=== PATIENT | male | born 1995 | race Hispanic/Latino ===

== ENCOUNTER 2018-03-15 16:56 | Emergency (ER) | payer SELFPAY ==
[2018-03-15] MEDS ORDERED: ONDANSETRON ODT 4 MG TAB ONE (17:33)
[2018-03-15] MEDS ORDERED: ACETAMINOPHEN 325 MG TAB ONE (17:33)
== END 2018-03-15 18:40 | disposition home or self-care (01) ==
LOC: EDH 16:56
DX: B34.9 Viral infection, unspecified (principal); Z72.0 Tobacco use
CPT/HCPCS: 87804

== ENCOUNTER 2018-08-28 16:13 | Emergency (ER) | payer OTHER ==
[2018-08-28] MEDS ORDERED: ONDANSETRON HCL 4 MG/2 ML VIAL ONE (17:30)
[2018-08-28] MEDS ORDERED: SODIUM CHLORIDE 0.9% 1000ML 1,000 ML IV ONE (17:30)
[2018-08-28 17:42] LABS: BASOPHILS % (AUTO) 0.2 % (0.0-5.0); EOSINOPHILS % (AUTO) 0.1 % (0.0-8.0); HEMATOCRIT 44.1 % (42-54); LYMPHOCYTES % (AUTO) 12.4 % (21.0-51.0); MEAN CORPUSCULAR HEMOGLOBIN 31.4 pg (27.0-33.0); MEAN CORPUSCULAR HGB CONC 34.9 g/dL (32.0-36.0); MEAN CORPUSCULAR VOLUME 89.8 fL (79-99); NEUTROPHILS % (AUTO) 74.3 % (40.0-77.0); PLATELET COUNT (AUTO) 227 K/uL (130-400); RED BLOOD CELL COUNT(AUTO) 4.91 MIL/uL (4.50-6.20); RED CELL DISTRIBUTION WIDTH 12.4 % (11.0-15.5)
[2018-08-28 18:02] LABS: POTASSIUM 3.6 mmol/L (3.5-5.1)
[2018-08-28 19:18] LABS: APPEARANCE,URINE Clear (CLEAR); BILIRUBIN,URINE Negative (NEGATIVE); COLOR,URINE Yellow (YELLOW); GLUCOSE, URINE (UA) Negative (NEGATIVE); KETONES,URINE Negative (NEGATIVE); LEUKOCYTE ESTERASE ,URINE Negative (NEGATIVE); NITRATE,URINE Negative (NEGATIVE); OCCULT BLOOD,URINE Negative (NEGATIVE); PH,URINE 6.5 (5.0-8.0); PROTEIN,URINE Negative (NEGATIVE); UROBILINOGEN,URINE 0.2 mg/dL (0.2-1.0)
== END 2018-08-28 19:48 | disposition home or self-care (01) ==
LOC: EDH 16:13
DX: R19.7 Diarrhea, unspecified (principal); R50.9 Fever, unspecified; M79.10 Myalgia, unspecified site; Z72.0 Tobacco use
CPT/HCPCS: 36415; 80048; 81003; 85025; 87804 ×2; 96361; 96374; 99285; J2405; J7030

== ENCOUNTER 2018-11-17 15:37 | Emergency (ER) | payer MEDICAID ==
[2018-11-17] MEDS ORDERED: ONDANSETRON ODT 4 MG TAB ONE (15:55)
== END 2018-11-17 16:41 | disposition home or self-care (01) ==
LOC: EDH 15:37
DX: B34.9 Viral infection, unspecified (principal); Z72.0 Tobacco use
CPT/HCPCS: 87804

== ENCOUNTER 2020-01-31 06:10 | Inpatient (IN) | payer MEDICAID, OTHER ==
[2020-01-31] VITALS (20 sets, daily range): BP systolic 89–135; BP diastolic 46–77
[~2020-01-31] VITALS: Ht 167.6 cm; Wt 49.4 kg
[2020-01-31] MEDS ORDERED: SODIUM CHLORIDE 0.9% 1000ML 1,000 ML IV ONE (06:30)
[2020-01-31] MEDS ORDERED: ONDANSETRON HCL 4 MG/2 ML VIAL ONE ×2 (07:03→18:55)
[2020-01-31] MEDS ORDERED: MORPHINE SULFATE 2 MG/ML 1ML SYG ONE (07:04)
[2020-01-31 07:25] LABS: BASOPHILS % (AUTO) 0.2 % (0.0-5.0); EOSINOPHILS % (AUTO) 0.1 % (0.0-8.0); HEMATOCRIT 46.9 % (42-54); LYMPHOCYTES % (AUTO) 3.1 % (21.0-51.0); MEAN CORPUSCULAR HEMOGLOBIN 30.4 pg (27.0-33.0); MEAN CORPUSCULAR HGB CONC 34.8 g/dL (32.0-36.0); MEAN CORPUSCULAR VOLUME 87.3 fL (79-99); MONOCYTES % (AUTO) 8.1 % (3.0-13.0); NEUTROPHILS % (AUTO) 87.9 % (40.0-77.0); PLATELET COUNT (AUTO) 218 K/uL (130-400); RED BLOOD CELL COUNT(AUTO) 5.37 MIL/uL (4.50-6.20); RED CELL DISTRIBUTION WIDTH 11.6 % (11.0-15.5); WHITE BLOOD COUNT (AUTO) 18.2 K/uL (4.8-10.8)
[2020-01-31 07:26] LABS: APPEARANCE,URINE Clear (CLEAR); BILIRUBIN,URINE Negative (NEGATIVE); COLOR,URINE Yellow (YELLOW); GLUCOSE, URINE (UA) Negative (NEGATIVE); KETONES,URINE Negative (NEGATIVE); LEUKOCYTE ESTERASE ,URINE Negative (NEGATIVE); NITRATE,URINE Negative (NEGATIVE); OCCULT BLOOD,URINE Negative (NEGATIVE); PH,URINE 6.5 (5.0-8.0); PROTEIN,URINE Trace mg/dL (NEGATIVE)
[2020-01-31 07:26] LABS: POTASSIUM 4.1 mmol/L (3.5-5.1)
[2020-01-31 07:31] LABS: ALBUMIN 4.1 g/dL (3.5-5.0); BILIRUBIN,TOTAL 1.2 mg/dL (0.2-1.0); TOTAL PROTEIN, SERUM 8.4 g/dL (6.0-8.3)
[2020-01-31 07:40] LABS: BACTERIA,URINE Few /HPF (None Seen); MUCUS,URINE Few LPF (None Seen); RBC,URINE 0-1 /HPF (0-1); SQUAMOUS EPITHELIAL CELL,UR Few /HPF (0-2)
[2020-01-31] MEDS ORDERED: KETOROLAC TROMETHAMINE 30MG/ML ONE (07:44)
[2020-01-31] MEDS ORDERED: SODIUM CHLORIDE 0.9% 1000ML 2,000 ML IV ONE (08:22)
[2020-01-31] MEDS ORDERED: IOHEXOL-350 75 ML VIAL IV ONE (09:21)
[2020-01-31] MEDS ORDERED: CEFOXITIN SODIUM 2 GM VIAL ONE (11:18)
[2020-01-31] MEDS ORDERED: SODIUM CHLORIDE 0.9% 100 ML IV ONE (11:18)
[2020-01-31] MEDS: LACTATED RINGERS 1000ML 1,000 ML IV SCH ×2 (12:09→20:55)
[2020-01-31] MEDS ORDERED: ZOSYN 3.375GM+NS 50ML 50 ML IV ONE (12:45)
[2020-01-31] MEDS ORDERED: LACTATED RINGERS 1000ML 1,000 ML IV ONE (12:57)
[2020-01-31] MEDS: ZOSYN 3.375GM+NS 50ML 50 ML IV SCH ×2 (13:00→20:55)
[2020-01-31] MEDS ORDERED: MIDAZOLAM HCL 1 MG/ML 2ML VIAL ONE (18:09)
[2020-01-31] MEDS ORDERED: FENTANYL CITRATE PF 50 MCG/1 ML 2ML VIAL ONE ×2 (18:09→19:18)
[2020-01-31] MEDS ORDERED: PROPOFOL 10 MG/ML 20ML VIAL IV ONE (18:10)
[2020-02-01] MEDS ORDERED: ONDANSETRON HCL 4 MG/2 ML VIAL IVP PRN (02:45)
[2020-02-01] MEDS ORDERED: MORPHINE SULFATE 4 MG/1ML SYG IV PRN (02:45)
[2020-02-01] MEDS ORDERED: ACETAMINOPHEN 325 MG TAB PO PRN ×2 (02:45)
[2020-02-01 03:44] VITALS: BP 99/49
[2020-02-01 05:06] LABS: HEMATOCRIT 36.4 % (42-54); LYMPHOCYTES % (AUTO) 2.5 % (21.0-51.0); MEAN CORPUSCULAR HEMOGLOBIN 29.9 pg (27.0-33.0); MEAN CORPUSCULAR HGB CONC 33.8 g/dL (32.0-36.0); MEAN CORPUSCULAR VOLUME 88.6 fL (79-99); NEUTROPHILS % (AUTO) 92.7 % (40.0-77.0); PLATELET COUNT (AUTO) 206 K/uL (130-400); RED BLOOD CELL COUNT(AUTO) 4.11 MIL/uL (4.50-6.20); RED CELL DISTRIBUTION WIDTH 11.9 % (11.0-15.5); WHITE BLOOD COUNT (AUTO) 10.4 K/uL (4.8-10.8)
[2020-02-01] MEDS: ZOSYN 3.375GM+NS 50ML 50 ML IV SCH ×2 (05:14→14:54)
[2020-02-01 07:43] VITALS: BP 96/45
--- NOTE | 2020-02-01 07:46 | NUR ---
Patient remained stable,s/p laparoscopic appendectomy ,remained NPO.Bedside report given to incoming NOD using SBAr.All questions answered.
[2020-02-01 11:18] VITALS: BP_SYST 102; BP_SYST 129; BP_DIAS 48; BP_DIAS 87
--- NOTE | 2020-02-01 14:44 | NUR ---
RD NOTIFICATION DIET: REGULAR. BMI IS 17.6 CLASSIFIED UNDERWEIGHT. PT UNABLE TO DETERMINE SIGNIFICANT WEIGHT CHANGES AT THIS TIME. LABS AND MEDS REVIEWED. SKIN IS INTACT. S/P LAP APPENDECTOMY. RD RECOMMENDS TO CONTINUE CURRENT DIET OFFER ENSURE TID AND 30ML PROMOD BID MONITOR WEIGHT CHANGES AND PO INTAKE Addendum: 02/01/20 at [address] Amended: Links added.
[2020-02-01] MEDS: LACTATED RINGERS 1000ML 1,000 ML IV SCH (14:57)
[2020-02-01 15:54] VITALS: BP 96/46
--- NOTE | 2020-02-01 18:00 | NUR ---
CM NOTE PATIENT TO BE DISCHARGED HOME, PER NURSE, NO NEEDS VERBALIZED. Addendum: 02/01/20 at 1801 by TEODORO SMITH RN CM Amended: Links added.
== END 2020-02-01 19:15 | disposition home or self-care (01) | DRG 343 ==
LOC: EDH 06:10 → EDHIP 06:11 → 3DH 13:23
PROVIDERS: ADMIT Surgery; ATTEND Surgery
PROC: 0DTJ4ZZ Resection of Appendix, Percutaneous Endoscopic Approach (ICD-10-PCS; principal; 2020-01-31 18:45)
DX: K35.80 Unspecified acute appendicitis (principal)
CPT/HCPCS: 36415; 74177; 80053; 81001; 83690; 85025; 87804; G0378; J0694; J1885; J2250; J2270; J2405; J2543; J2704; J3010; J7030; J7120; Q9967

== ENCOUNTER 2020-02-17 18:12 | Inpatient (IN) | payer SELFPAY ==
[~2020-02-17] VITALS: Ht 167.6 cm; Wt 51.5 kg
[2020-02-17 18:54] LABS: BASOPHILS % (AUTO) 0.4 % (0.0-5.0); HEMATOCRIT 40.8 % (42-54); LYMPHOCYTES % (AUTO) 14.4 % (21.0-51.0); MEAN CORPUSCULAR HEMOGLOBIN 30.5 pg (27.0-33.0); MEAN CORPUSCULAR HGB CONC 33.6 g/dL (32.0-36.0); MEAN CORPUSCULAR VOLUME 90.9 fL (79-99); MONOCYTES % (AUTO) 6.5 % (3.0-13.0); NEUTROPHILS % (AUTO) 77.3 % (40.0-77.0); PLATELET COUNT (AUTO) 344 K/uL (130-400); RED BLOOD CELL COUNT(AUTO) 4.49 MIL/uL (4.50-6.20); RED CELL DISTRIBUTION WIDTH 12.3 % (11.0-15.5)
[2020-02-17 18:57] LABS: APPEARANCE,URINE Clear (CLEAR); BILIRUBIN,URINE Negative (NEGATIVE); COLOR,URINE Yellow (YELLOW); GLUCOSE, URINE (UA) Negative (NEGATIVE); KETONES,URINE Negative (NEGATIVE); LEUKOCYTE ESTERASE ,URINE Negative (NEGATIVE); NITRATE,URINE Negative (NEGATIVE); OCCULT BLOOD,URINE Negative (NEGATIVE); PH,URINE 5.5 (5.0-8.0); PROTEIN,URINE Negative (NEGATIVE); UROBILINOGEN,URINE 0.2 mg/dL (0.2-1.0)
[2020-02-17 19:05] LABS: POTASSIUM 3.9 mmol/L (3.5-5.1)
[2020-02-17 19:09] LABS: ALBUMIN 3.8 g/dL (3.5-5.0); BILIRUBIN,TOTAL 0.5 mg/dL (0.2-1.0); TOTAL PROTEIN, SERUM 7.4 g/dL (6.0-8.3)
[2020-02-17] MEDS ORDERED: IOHEXOL-350 75 ML VIAL IV ONE (20:29)
[2020-02-17] MEDS ORDERED: ONDANSETRON HCL 4 MG/2 ML VIAL ONE (21:31)
[2020-02-17] MEDS ORDERED: ZOSYN 3.375GM+NS 50ML 50 ML IV ONE (21:31)
[2020-02-17] MEDS ORDERED: KETOROLAC TROMETHAMINE 15MG/ML ONE (21:32)
[2020-02-17] MEDS: ZOSYN 3.375GM+NS 50ML 50 ML IV SCH (22:00)
[2020-02-17] MEDS ORDERED: ONDANSETRON HCL 4 MG/2 ML VIAL IV PRN (22:00)
[2020-02-17] MEDS: LACTATED RINGERS 1000ML 1,000 ML IV SCH (22:00)
[2020-02-17] MEDS ORDERED: ACETAMINOPHEN 325 MG TAB PO PRN (22:00)
[2020-02-17] MEDS ORDERED: VANCOMYCIN 1GM+NS 250ML 250 ML IV ONE (22:39)
[2020-02-17] MEDS ORDERED: PHARMACY COMMUNICATION MISC SCH (23:30)
[2020-02-17 23:55] VITALS: BP 104/62
[2020-02-18 03:00] VITALS: BP 99/57
[2020-02-18] MEDS: ZOSYN 3.375GM+NS 50ML 50 ML IV SCH ×3 (05:23→22:17)
[2020-02-18 05:32] LABS: BASOPHILS % (AUTO) 0.3 % (0.0-5.0); EOSINOPHILS % (AUTO) 0.6 % (0.0-8.0); HEMATOCRIT 38.8 % (42-54); LYMPHOCYTES % (AUTO) 15.3 % (21.0-51.0); MEAN CORPUSCULAR HEMOGLOBIN 29.7 pg (27.0-33.0); MEAN CORPUSCULAR HGB CONC 32.7 g/dL (32.0-36.0); MEAN CORPUSCULAR VOLUME 90.7 fL (79-99); MONOCYTES % (AUTO) 10.6 % (3.0-13.0); NEUTROPHILS % (AUTO) 72.7 % (40.0-77.0); PLATELET COUNT (AUTO) 301 K/uL (130-400); RED BLOOD CELL COUNT(AUTO) 4.28 MIL/uL (4.50-6.20); RED CELL DISTRIBUTION WIDTH 12.3 % (11.0-15.5)
[2020-02-18 05:47] LABS: INR 0.99 (0.85-1.15); PARTIAL THROMBOPLASTIN TIME 25.6 SEC (26.3-35.5); PROTHROMBIN TIME 10.7 SEC (9.6-11.6)
[2020-02-18 05:54] LABS: ALANINE AMINOTRANSFERASE 114 U/L (12-78); ALBUMIN 3.1 g/dL (3.5-5.0); ASPARTATE AMINOTRANSFERASE 56 U/L (10-37); BILIRUBIN,TOTAL 1.1 mg/dL (0.2-1.0); CARBON DIOXIDE 27 mmol/L (21-32); CHLORIDE 105 mmol/L (101-111); CREATININE 0.9 mg/dL (0.5-1.5); GLOMERULAR FILTR. RATE CALC 110 mL/min (>60); GLUCOSE,RANDOM 90 mg/dL (70-105); POTASSIUM 4.1 mmol/L (3.5-5.1); SODIUM SERUM 141 mmol/L (136-145); TOTAL PROTEIN, SERUM 6.2 g/dL (6.0-8.3); UREA NITROGEN, BLOOD 13 mg/dL (7-18)
[2020-02-18 08:03] VITALS: BP 101/48
[2020-02-18] MEDS: LACTATED RINGERS 1000ML 1,000 ML IV SCH (08:44)
[2020-02-18] MEDS: FAMOTIDINE/PF 20 MG/2 ML VIAL IV SCH ×2 (08:44→19:41)
--- NOTE | 2020-02-18 08:56 | NUR ---
DR JACKSON CALLED DR JACKSON REGARDING CONSULT- STATED HE WILL BE BY TO SEE PT. HE DOES NOT NEED SURGERY THEREFORE DOES NOT NEED TO BE NPO. PT VERBALIZED UNDERSTANDING
[2020-02-18 11:34] VITALS: BP 101/52
[2020-02-18] MEDS: METRONIDAZOLE 500MG/100ML BAG 100 ML IV SCH ×2 (15:19→22:16)
[2020-02-18 16:38] VITALS: BP 105/71
[2020-02-18 19:00] VITALS: BP 114/53
--- NOTE | 2020-02-18 19:21 | NUR ---
cm note met with patient and states resides athome with mother, independent with adls and ambulation. drives. states does not see md. provided list of resources for clinics, and rx assist card provided.dc plan is back home. Addendum: 02/18/20 at 1928 by HAILEY OSUNA CM Amended: Links added.
[2020-02-18 23:00] VITALS: BP 104/55
[2020-02-18] MEDS ORDERED: MORPHINE SULFATE 2 MG/ML 1ML SYG ONE (23:56)
[2020-02-19] MEDS ORDERED: MORPHINE SULFATE 2 MG/ML 1ML SYG IVP PRN
--- NOTE | 2020-02-19 00:12 | NUR ---
pain patient complains of pain to abd no order for pain medications. Ji SEALS TITLE CLOSER NOTIFIED AND NEW ORDERS GIVEN AND CARRIED OUT.
[2020-02-19] MEDS: LACTATED RINGERS 1000ML 1,000 ML IV SCH ×3 (02:31→19:53)
[2020-02-19 03:00] VITALS: BP 111/55
[2020-02-19] MEDS: METRONIDAZOLE 500MG/100ML BAG 100 ML IV SCH ×3 (04:55→21:19)
[2020-02-19] MEDS: ZOSYN 3.375GM+NS 50ML 50 ML IV SCH ×3 (05:19→21:19)
[2020-02-19 05:41] LABS: BASOPHILS % (AUTO) 0.5 % (0.0-5.0); EOSINOPHILS % (AUTO) 1.6 % (0.0-8.0); HEMATOCRIT 37.4 % (42-54); LYMPHOCYTES % (AUTO) 30.8 % (21.0-51.0); MEAN CORPUSCULAR HEMOGLOBIN 29.3 pg (27.0-33.0); MEAN CORPUSCULAR HGB CONC 32.4 g/dL (32.0-36.0); MEAN CORPUSCULAR VOLUME 90.6 fL (79-99); MONOCYTES % (AUTO) 9.6 % (3.0-13.0); NEUTROPHILS % (AUTO) 57.2 % (40.0-77.0); PLATELET COUNT (AUTO) 280 K/uL (130-400); RED BLOOD CELL COUNT(AUTO) 4.13 MIL/uL (4.50-6.20); RED CELL DISTRIBUTION WIDTH 12.3 % (11.0-15.5); WHITE BLOOD COUNT (AUTO) 7.6 K/uL (4.8-10.8)
[2020-02-19 06:05] LABS: ALBUMIN 3.1 g/dL (3.5-5.0); POTASSIUM 3.6 mmol/L (3.5-5.1); TOTAL PROTEIN, SERUM 6.4 g/dL (6.0-8.3)
[2020-02-19 07:39] VITALS: BP 113/50
[2020-02-19 10:43] VITALS: BP 99/46
--- NOTE | 2020-02-19 11:09 | NUR ---
PROCEDURE PATIENT SCHEDULED FOR DRAINAGE OF PELVIC FLUID COLLECTION. DR Barbara GUILLORY NOTIFIED AND REVIEWED IMAGES. PATIENT NOT A CANDIDATE FOR CATHETER PLACEMENT. PATIENT AFEBRILE FOR THE PAST 3 DAYS WITH WBC 7.3 AND SMALL FLUID COLLECTION. PROCEDURE CANCELED. DR Barbara GUILLORY STATED HE WILL CALL DR William JACKSON. JILL HOLLOWAY NOTIFED OF PROCEDURE OUTCOME.
--- NOTE | 2020-02-19 11:45 | NUR ---
DR BRANCH SPOKE TO PATIENT AND INFORMED PATIENT THAT THEY WOULD NOT BE INSERTING THE DRAIN TODAY BECAUSE THERE IS NOT ENOUGH FLUID TO DRAIN. PATIENT VERBALIZED UNDERSTANDING. RECEIVED ORDERS TO PACK INCISION/WOUND WITH IODIFOAM DRESSING.
[2020-02-19] MEDS: FAMOTIDINE/PF 20 MG/2 ML VIAL IV SCH ×2 (11:52→19:53)
--- NOTE | 2020-02-19 12:00 | NUR ---
DRESSING CHANGED CLEANSED INCISION/WOUND WITH STERILE WATER AND QTIP/GAUZE. PACKED WOUND/INCISION WITH IODIFOAM DRESSING AND COVERED WITH GAUZE. PATIENT TOLERATED WELL.
[2020-02-19 16:12] VITALS: BP 103/54
[2020-02-19 20:49] VITALS: BP 109/58
--- NOTE | 2020-02-19 21:20 | NUR ---
MEDS SHIFT ASSESSMENT DONE, PLEASE REFER TO CHART. NO COMPLAINTS VERBALIZED AT THIS TIME. DUE MEDS INFUSED. KEPT RESTED AND COMFORTABLE. CALL LIGHT WITHIN REACH. WILL MONITOR PT. Addendum: 02/19/20 at 2205 by ROBBY LYN RN RN Amended: Links added.
[2020-02-19 23:39] VITALS: BP 116/58
--- NOTE | 2020-02-20 02:00 | NUR ---
ROUNDS PT RESTING WELL, FAIRLY ASLEEP WITH RESPIRATIONS EVEN AND UNLABORED. NO NOTED DISTRESS. KEPT RESTED AND UNDISTURBED. WILL CONTINUE TO MONITOR.
[2020-02-20] MEDS: LACTATED RINGERS 1000ML 1,000 ML IV SCH ×2 (02:45→15:17)
[2020-02-20 04:26] VITALS: BP 113/57
[2020-02-20] MEDS: METRONIDAZOLE 500MG/100ML BAG 100 ML IV SCH ×3 (05:04→20:50)
[2020-02-20] MEDS: ZOSYN 3.375GM+NS 50ML 50 ML IV SCH ×3 (05:04→20:50)
--- NOTE | 2020-02-20 05:05 | NUR ---
MEDS B[place]SAI CULTURIST IN AND AWAKENED PT TO DRAW BLOOD. DENIES ANY CONCERNS AT THIS TIME. DUE IV ANTIBIOTICS HUNG. KEPT RESTED. ENCOURAGED TO GO BACK TO SLEEP. FOR MORE CARE.
[2020-02-20 05:34] LABS: BASOPHILS % (AUTO) 0.8 % (0.0-5.0); EOSINOPHILS % (AUTO) 2.3 % (0.0-8.0); LYMPHOCYTES % (AUTO) 33.6 % (21.0-51.0); MEAN CORPUSCULAR HGB CONC 33.5 g/dL (32.0-36.0); MEAN CORPUSCULAR VOLUME 89.6 fL (79-99); MONOCYTES % (AUTO) 10.6 % (3.0-13.0); NEUTROPHILS % (AUTO) 52.5 % (40.0-77.0); PLATELET COUNT (AUTO) 306 K/uL (130-400); RED BLOOD CELL COUNT(AUTO) 4.13 MIL/uL (4.50-6.20)
[2020-02-20 05:59] LABS: ALBUMIN 3.1 g/dL (3.5-5.0); BILIRUBIN,TOTAL 0.7 mg/dL (0.2-1.0); CREATININE 1.1 mg/dL (0.5-1.5); POTASSIUM 3.9 mmol/L (3.5-5.1); TOTAL PROTEIN, SERUM 6.4 g/dL (6.0-8.3)
[2020-02-20 07:38] VITALS: BP 108/62
[2020-02-20] MEDS: FAMOTIDINE/PF 20 MG/2 ML VIAL IV SCH ×2 (09:15→20:50)
[2020-02-20 11:02] VITALS: BP 114/61
--- NOTE | 2020-02-20 11:24 | NUR ---
Discussed plan of care with MD. MARTINEZ unable to do percutaneous drian of abscess-IV abx will need to be continued longer. No dc plan at this time Addendum: 02/20/20 at 1126 by GONSALO CRUZ RN CM Amended: Links added.
--- NOTE | 2020-02-20 14:02 | NUR ---
VANESSA PAGED VANESSA RAO HOTEL SUPERINTENDENT FOR HOSPITALIST, VIA ANSWERING SERVICE TO VERIFY IVF. DIGITAL COORDINATOR CALLED BACK WITH NEW ORDER, PLEASE REFER TO CPOE. Addendum: 02/21/20 at 0004 by ROBBY LYN RN RN ERROR ENTRY
[2020-02-20 16:15] VITALS: BP 113/69
--- NOTE | 2020-02-20 16:48 | NUR ---
Nutrition screen based on BMI 18.3. Pt. on Regular diet. Pt. reports good p.o. intake. Labs reviewed(Alb 3.1). Spoke with pt. regarding protein supplementation and pt. agreed to try. SR-20, elastic. LBM: 02/20/2020, per pt. BMI: 18.3, underweight. Pt. reports wants to gain weight but has been unable to. Pt. educated on High Calorie High Protein diet and provided with education material. Pt. verbalized understanding. Recommendations: 1) Rec. High Calorie diet to help promote wt. gain. 2) Rec. 30ml ProMod BID with B'fast and dinner meals. 3) High Calorie High Protein diet education given to patient. 4) Continue to monitor pt's nutritional status. 5) Consult RD as nutrition concerns arise. Addendum: 02/20/20 at [address] Amended: Links added.
--- NOTE | 2020-02-20 17:45 | NUR ---
SPOKE TO DR. HANEY REGARDING DR. JACKSON'S REQUEST FOR PO ABX SO PATIENT COULD BE DISCHARGED HOME. NO FURTHER PROCEDURES WILL BE PERFORMED AT THIS TIME. PER JUAN LUIS SRINIVASAN. NEED TO FURTHER CLARIFY.
[2020-02-20 20:07] VITALS: BP 99/44
--- NOTE | 2020-02-20 20:50 | NUR ---
MEDS SHIFT ASSESSMENT DONE, PLEASE REFER TO CHART. DENIES ANY COMPLAINTS AT THIS TIME. DUE MEDS ADMINISTERED, TOLERATED WELL. KEPT RESTED AND COMFORTABLE. CALL LIGHT WITHIN REACH. WILL MONITOR PT. Addendum: 02/20/20 at 2120 by ROBBY LYN RN RN Amended: Links added.
--- NOTE | 2020-02-20 21:15 | NUR ---
MONUMENT ERECTOR PAGED VANESSA RAO CONSTRUCTION PRODUCER FOR HOSPITALIST, VIA ANSWERING SERVICE TO VERIFY NEED FOR IVF. MONUMENT ERECTOR CLALED BACK AND NEW ORDER RECEIVED. PLEASE REFER TO CPOE.
[2020-02-21 00:54] VITALS: BP 119/55
--- NOTE | 2020-02-21 01:27 | NUR ---
ROUNDS IV ANTIBIOTICS ALREADY INFUSED, SALINE LOCKED PT. PT VERBALIZES THAT HE JUST HAD A BM. NO COMPLAINTS VERBALIZED. ENCOURAGED TO GO BACK TO SLEEP. WILL MONITOR PT. CALL LIGHT WITHIN REACH.
[2020-02-21 04:26] VITALS: BP 112/58
--- NOTE | 2020-02-21 05:00 | NUR ---
MEDS PT ALREADY AWAKE. NO DISTRESS NOTED. NO COMPLAINTS VERBALIZED. DUE IV ANTIBIOTICS HUNG WITH NEW IV TUBINGS. KEPT RESTED. FOR MORE CARE.
[2020-02-21] MEDS: METRONIDAZOLE 500MG/100ML BAG 100 ML IV SCH (05:06)
[2020-02-21] MEDS: ZOSYN 3.375GM+NS 50ML 50 ML IV SCH (05:06)
[2020-02-21 06:18] LABS: BASOPHILS % (AUTO) 0.5 % (0.0-5.0); EOSINOPHILS % (AUTO) 0.8 % (0.0-8.0); HEMATOCRIT 36.9 % (42-54); LYMPHOCYTES % (AUTO) 21.7 % (21.0-51.0); MEAN CORPUSCULAR HEMOGLOBIN 29.7 pg (27.0-33.0); MEAN CORPUSCULAR HGB CONC 33.6 g/dL (32.0-36.0); MEAN CORPUSCULAR VOLUME 88.3 fL (79-99); MONOCYTES % (AUTO) 10.5 % (3.0-13.0); NEUTROPHILS % (AUTO) 66.2 % (40.0-77.0); PLATELET COUNT (AUTO) 308 K/uL (130-400); RED BLOOD CELL COUNT(AUTO) 4.18 MIL/uL (4.50-6.20); RED CELL DISTRIBUTION WIDTH 11.9 % (11.0-15.5); WHITE BLOOD COUNT (AUTO) 6.5 K/uL (4.8-10.8)
[2020-02-21 06:34] LABS: ALBUMIN 3.4 g/dL (3.5-5.0); BILIRUBIN,TOTAL 0.8 mg/dL (0.2-1.0); CREATININE 1.1 mg/dL (0.5-1.5); POTASSIUM 3.6 mmol/L (3.5-5.1); TOTAL PROTEIN, SERUM 6.7 g/dL (6.0-8.3)
[2020-02-21 08:13] VITALS: BP 99/67
[2020-02-21] MEDS: FAMOTIDINE/PF 20 MG/2 ML VIAL IV SCH (09:09)
[2020-02-21 11:00] VITALS: BP 98/48
--- NOTE | 2020-02-21 12:25 | NUR ---
INSTRUCTIONS DISCHARGE INSTRUCTIONS GIVEN TO PATIENT USING TEACH BACK. IV REMOVED AND DRESSING TO LOWER ABDOMEN CHANGED PER MD ORDERS. NEW PRESCRIPTIONS PLACED IN DISCHARGE PACKET ALONG WITH ALL PRINTED MATERIAL AND MD INSTRUCTIONS. F/U APPOINTMENT MADE ON LAST VISIT WILL BE KEPT. NO QUESTIONS OR CONCERNS VOICED. PENDING RIDE HOME.
== END 2020-02-21 12:45 | disposition home or self-care (01) | DRG 862 ==
LOC: EDH 18:12 → EDHIP 18:13 → 3AH 22:42
PROVIDERS: ADMIT Hospitalist; ATTEND Hospitalist
DX: T81.41XA Infection following a procedure, superficial incisional surgical site, initial encounter (principal); K65.1 Peritoneal abscess; Y83.8 Other surgical procedures as the cause of abnormal reaction of the patient, or of later complication, without mention of misadventure at the time of the procedure; Y92.89 Other specified places as the place of occurrence of the external cause; Z90.49 Acquired absence of other specified parts of digestive tract
CPT/HCPCS: 36415; 74177; 80053; 81003; 84145; 85025; 85610; 85730; 86140; 87040; G0378; J1885; J2405; J2543; J3370; J3490; J7120; Q9967